=== PATIENT | male | born 1995 | race Caucasian/White ===

== ENCOUNTER 2017-08-21 12:12 | Emergency (ER) | payer SELFPAY ==
[~2017-08-21] VITALS: Ht 177.8 cm; Wt 70.4 kg
[~2017-08-21 12:12] MED LIST: NOHOMEMEDS; ZITHROMAX Z-PA250 MG PO
[2017-08-21] MEDS ORDERED: GUAIFENESIN600 M1 PO (14:01)
[2017-08-21] MEDS ORDERED: ROBITUSSIN NIG237 ML PO (14:01)
[2017-08-21] MEDS ORDERED: TESSALON200 MG PO (14:01)
[2017-08-21 14:16] VITALS: BP 123/75
== END 2017-08-21 14:17 | disposition home or self-care (01) ==
LOC: EME 12:12
DX: J06.9 Acute upper respiratory infection, unspecified (principal); R11.10 Vomiting, unspecified
CPT/HCPCS: 87502; 99281; 99283